=== PATIENT | male | born 1955 | race Two or more races ===

== ENCOUNTER 2023-09-05 16:58 | Inpatient (IN) | payer OTHER ==
[~2023-09-05] VITALS: Ht 167.6 cm; Wt 136.1 kg
--- NOTE | 2023-09-05 17:17 | NUR ---
PTE ALERTA Y ORIENTADO X3 EN COMPANIA DE FAMILIAR REFIERE VENIR A RODERICK DEBIDO A QUE EL MISMO DELATORRE ESTADO TENIENDO DOLOR AL ORINAR, PTYE EXPRESA TENER DOLOR CORPORAL Y AL MOMENTO DE ANN DE S/V TIENE FIEBRE 103.0. SE UBICA A PTE EN OBSERVACION. PTE FUE ADMINTIDO ANTERIOIR MENTE POR SEPTICEMIA.
[2023-09-05] MEDS ORDERED: ACETAMINOPHEN 500 MG GEL..CAP PO ONE (18:45)
--- NOTE | 2023-09-05 18:55 | NUR ---
FELICITY A.FAITH ORIENTA A PTE SOBRE TRATAMIENTO E INSTRUCCIONES A SEGUIR, EL REFIERE ENTENDER. SE COLECTA MUESTRAS, SE CANALIZA Y SE ADMINISTRA MEDICAMENTO RODRIGO ORDEN MEDICA
[2023-09-05 19:15] LABS: HEMATOCRIT 38.8 % (39.0-48.0); HEMOGLOBIN 12.8 g/dL (13-16.00); MEAN CELL VOLUME 81.7 fL (80.0-100.00); MEAN CORPUSCULAR HEMOGLOBIN 26.9 pg (27.00-32.0); MEAN CORPUSCULAR HGB CONC 32.9 g/dl (32.0-36.0); PLATELET COUNT 149 K/uL (150-450); RED BLOOD COUNT 4.75 M/uL (4.00-6.00); RED CELL DISTRIBUTION WIDTH 14.5 % (11.5-14.5)
[2023-09-05 19:37] LABS: ALBUMIN 3.1 gm/dL (3.4-5.0); BILIRUBIN TOTAL 0.69 mg/dL (0.3-1.2); CALCIUM 9.2 mg/dL (8.5-10.1); CREATININE SERUM 2.12 mg/dL (0.70-1.30); GFR 31.41; GLOBULINA 3.9 G/DL (2.4-3.5); POTASSIUM 4.95 mEq/L (3.5-5.1)
[2023-09-05 19:40] LABS: URINE APPEARANCE Cloudy; URINE BILIRRUBIN Negative (NEGATIVE); URINE BLOOD Large; URINE COLOR Dark Yellow; URINE GLUCOSE Negative (NEGATIVE); URINE LEUKOCYTE Moderate; URINE NITRATE Positive; URINE PROTEIN 30 (NEGATIVE); URINE UROBILINOGEN 0.2 E.U./dl
[2023-09-05 19:44] LABS: URINE EPITHELIAL CELLS 8.3 uL (0.0-38.8); URINE RBC 2.1 uL (0.0-20.8)
[2023-09-05 19:53] LABS: URINE BACTERIA > 9821.5 uL (0.0-1933)
[2023-09-05] MEDS ORDERED: levoFLOXacin IN DEXTROSE 5 % 5 MG/ML PIGGYBAG IV STA (21:07)
[2023-09-05] MEDS ORDERED: 0.9 % SODIUM CHLORIDE 1,000 ML IV STA (21:11)
[2023-09-05] MEDS ORDERED: levoFLOXacin IN DEXTROSE 5 % 5 MG/ML PIGGYBAG IV SCH (21:15)
[2023-09-05] MEDS ORDERED: DEXTROSE 50 % IN WATER 0.5 G/ML DISP.SYRIN IV PRN (22:30)
[2023-09-05] MEDS ORDERED: RINGERS SOLUTION,LACTATED 1,000 ML IV SCH (22:30)
[2023-09-05] MEDS ORDERED: INSULIN LISPRO 1,000 UNIT/10 ML UNITS SUBCUTANEO PRN (22:30)
[2023-09-06 04:32] LABS: HEMATOCRIT 40.2 % (39.0-48.0); HEMOGLOBIN 13.3 g/dL (13-16.00); MEAN CELL VOLUME 82.2 fL (80.0-100.00); MEAN CORPUSCULAR HEMOGLOBIN 27.3 pg (27.00-32.0); MEAN CORPUSCULAR HGB CONC 33.2 g/dl (32.0-36.0); PLATELET COUNT 137 K/uL (150-450); RED BLOOD COUNT 4.89 M/uL (4.00-6.00); RED CELL DISTRIBUTION WIDTH 14.7 % (11.5-14.5)
[2023-09-06 04:34] LABS: CHOL HDL RATIO 1.4 (0-5.0)
[2023-09-06 04:53] LABS: ALBUMIN 3.3 gm/dL (3.4-5.0); BILIRUBIN TOTAL 0.86 mg/dL (0.3-1.2); CALCIUM 9.5 mg/dL (8.5-10.1); CREATININE SERUM 1.99 mg/dL (0.70-1.30); GFR 33.79; GLOBULINA 3.9 G/DL (2.4-3.5); MAGNESIUM 1.7 mg/dL (1.8-2.4); POTASSIUM 5.35 mEq/L (3.5-5.1); TOTAL PROTEIN 7.2 gm/dL (6.4-8.2)
[2023-09-06] MEDS ORDERED: ACETAMINOPHEN 500 MG GEL..CAP PO PRN (06:45)
[2023-09-06] MEDS ORDERED: LEVOTHYROXINE SODIUM 175 MCG TABLET PO SCH (09:00)
[2023-09-06] MEDS ORDERED: PANTOPRAZOLE SODIUM 40 MG/VIAL VIAL IV SCH (09:00)
[2023-09-06] MEDS ORDERED: ATORVASTATIN CALCIUM 40 MG TABLET PO SCH (09:00)
[2023-09-06] MEDS ORDERED: GABAPENTIN 600 MG TABLET PO SCH (09:00)
[2023-09-06] MEDS ORDERED: IRON FUM,PS/FOLIC/BCOMP,C NO.9 1 CAP CAPSULE PO SCH (09:00)
[2023-09-06] MEDS ORDERED: AMINO ACIDS 1 EACH TABLET PO SCH (09:00)
[2023-09-06] MEDS ORDERED: ENOXAPARIN SODIUM 30 MG/0.3 ML SYRINGE SUBCUTANEO SCH (09:00)
[2023-09-06] MEDS ORDERED: POTASSIUM PHOS,M-BASIC-D-BASIC 3 MM/ML VIAL IV ONE (11:00)
[2023-09-07] MEDS ORDERED: LEVOTHYROXINE SODIUM 175 MCG TABLET PO SCH (06:00)
[2023-09-07] MEDS ORDERED: CEFTRIAXONE SODIUM 2,000 MG VIAL IV SCH (09:00)
[2023-09-08 05:29] LABS: HEMATOCRIT 32.8 % (39.0-48.0); HEMOGLOBIN 11.1 g/dL (13-16.00); MEAN CELL VOLUME 81.6 fL (80.0-100.00); MEAN CORPUSCULAR HEMOGLOBIN 27.7 pg (27.00-32.0); RED BLOOD COUNT 4.02 M/uL (4.00-6.00); RED CELL DISTRIBUTION WIDTH 14.2 % (11.5-14.5)
[2023-09-08 05:48] LABS: PLATELET COUNT 107 K/uL (150-450)
[2023-09-08 05:51] LABS: CALCIUM 8.3 mg/dL (8.5-10.1); CREATININE SERUM 1.25 mg/dL (0.70-1.30); GFR 57.79; MAGNESIUM 1.8 mg/dL (1.8-2.4); PHOSPHOROUS 2.3 mg/dL (2.5-4.9); POTASSIUM 3.85 mEq/L (3.5-5.1)
[2023-09-08] MEDS ORDERED: LEVOTHYROXINE SODIUM 150 MCG TABLET PO SCH (06:00)
[2023-09-08] MEDS ORDERED: POTASSIUM PHOS,M-BASIC-D-BASIC 15 MM in 0.9 % SODIUM CHLORIDE 250 ML IV ONE (10:15)
[2023-09-08] MEDS ORDERED: TAMSULOSIN HCL 0.4 MG CAP PO SCH (10:19)
[2023-09-09 08:05] LABS: URINE PROT QUANT 24HR 63.1 MG/DL
[2023-09-09 08:09] LABS: URINE PROT QUANT 24 HR 1056.93 MG/24HR (42-225)
[2023-09-09 08:11] LABS: CREATINE CLEARANCE 58.8 ML/MIN (97-137); CREATININE SERUM 1.25 mg/dL (0.8-1.3)
[2023-09-10 05:32] LABS: HEMATOCRIT 34.4 % (39.0-48.0); HEMOGLOBIN 11.6 g/dL (13-16.00); MEAN CELL VOLUME 82.2 fL (80.0-100.00); MEAN CORPUSCULAR HEMOGLOBIN 27.7 pg (27.00-32.0); MEAN CORPUSCULAR HGB CONC 33.7 g/dl (32.0-36.0); PLATELET COUNT 151 K/uL (150-450); RED BLOOD COUNT 4.18 M/uL (4.00-6.00); RED CELL DISTRIBUTION WIDTH 14.5 % (11.5-14.5)
[2023-09-10 05:34] LABS: ERYTHROCYTE SEDIMENTATION RATE 100 mm/hr
[2023-09-10 05:43] LABS: ALBUMIN 2.4 gm/dL (3.4-5.0); BILIRUBIN TOTAL 0.41 mg/dL (0.3-1.2); CALCIUM 8.6 mg/dL (8.5-10.1); CREATININE SERUM 1.3 mg/dL (0.70-1.30); GFR 55.23; GLOBULINA 3.4 G/DL (2.4-3.5); PHOSPHOROUS 2.4 mg/dL (2.5-4.9); POTASSIUM 4.36 mEq/L (3.5-5.1); TOTAL PROTEIN 5.8 gm/dL (6.4-8.2)
[2023-09-10 05:44] LABS: C-REACTIVE PROTEIN 10.7 MG/DL (0.00-0.29)
[2023-09-10] MEDS ORDERED: POTASSIUM PHOS,M-BASIC-D-BASIC 15 MM in 0.9 % SODIUM CHLORIDE 250 ML IV ONE (12:45)
[2023-09-11] MEDS ORDERED: PANTOPRAZOLE SODIUM 40 MG/VIAL VIAL IV SCH (10:06)
[2023-09-11] MEDS ORDERED: INTEGRA PLUS C1 EACH PO (10:36)
[2023-09-11] MEDS ORDERED: TAMS0.4C PO (10:36)
[2023-09-11] MEDS ORDERED: PRE PROTEIN1 EACH PO (10:37)
[2023-09-11] MEDS ORDERED: LEVOFLOXACIN750 MG PO (10:38)
== END 2023-09-11 11:32 | disposition home or self-care (01) | DRG 689 ==
LOC: ER 16:58 → MEDJ 22:34 → SEC-K 22:34 → MEDJ 09-06 03:05
PROVIDERS: Emergency Medicine; Internal Medicine; Specialist/Technologist, Other Nephrology; ADMIT Internal Medicine; ATTEND Internal Medicine
PROC: BW21ZZZ Computerized Tomography (CT Scan) of Abdomen and Pelvis (ICD-10-PCS; principal; 2023-09-05)
DX: N39.0 Urinary tract infection, site not specified (principal); A41.9 Sepsis, unspecified organism; N17.9 Acute kidney failure, unspecified; E11.9 Type 2 diabetes mellitus without complications; Z79.4 Long term (current) use of insulin; I12.9 Hypertensive chronic kidney disease with stage 1 through stage 4 chronic kidney disease, or unspecified chronic kidney disease; N18.9 Chronic kidney disease, unspecified; I25.10 Atherosclerotic heart disease of native coronary artery without angina pectoris; B96.20 Unspecified Escherichia coli [E. coli] as the cause of diseases classified elsewhere; E03.9 Hypothyroidism, unspecified